=== PATIENT | female | born 1990 | race African-American/Black ===

== ENCOUNTER 2016-11-23 15:26 | Emergency (ER) | payer SELFPAY ==
[~2016-11-23] VITALS: Ht 167.6 cm; Wt 80.0 kg
[2016-11-23 15:31] VITALS: BP 122/78; PULSE 75; RESP 14; TEMP 98.2; O2SAT 99
== END 2016-11-23 18:50 | disposition left against medical advice (07) ==
LOC: NED 15:26
DX: N94.9 Unspecified condition associated with female genital organs and menstrual cycle (principal)
CPT/HCPCS: 99281